=== PATIENT | female | born 1940 | race Caucasian/White ===

== ENCOUNTER → 2017-01-21 | Outpatient (CLI) | payer MEDICARE, OTHER ==
[2016-04-18 14:45] VITALS: BP 126/72
[~2017-01-21] MED LIST: BIOT10004 PO; CALC1TAB PO; CHOL10003 PO; FLUT1DIS3 IH; IRON18TA PO; MULT1TAB52 PO; OMEG300C PO; OMEP40CA5 PO; PROAIR HFA8.5 GM INH
--- NOTE | 2017-01-21 10:27 | RAD ---
DATE: 01/21/2017 EXAM: DIGITAL SCREEN LT W/CAD HISTORY: Previous right breast cancer, left breast screening COMPARISON: 01/20/2016 This study was interpreted with the benefit of Computerized Aided Detection (CAD). FINDINGS: There are scattered fibroglandular densities in the left breast. No new or enlarging breast densities are seen. There is mild unchanged skin retraction in the periareolar region which is presumably postsurgical. Scattered benign type calcifications are present. No suspicious microcalcifications have developed. IMPRESSION: Stable left mammograms without evidence of malignancy. BI-RADS CATEGORY: 2 BENIGN FINDING(S) RECOMMENDED FOLLOW-UP: 12M 12 MONTH FOLLOW-UP PQRS compliance statement: Patient information was entered into a reminder system with a target due date for the next mammogram. Mammography is a sensitive method for finding small breast cancers, but it does not detect them all and is not a substitute for careful clinical examination. A negative mammogram does not negate a clinically suspicious finding and should not result in delay in biopsying a clinically suspicious abnormality. "Our facility is accredited by the [employer] Mammography [employer]."
== END | disposition home or self-care (01) ==
LOC: MAMMO 08:57
PROVIDERS: ATTEND Family Medicine
DX: Z12.31 Encounter for screening mammogram for malignant neoplasm of breast (principal)
CPT/HCPCS: G0202; 77067

== ENCOUNTER → 2020-01-28 | Outpatient (CLI) | payer MEDICARE, OTHER ==
[2016-04-18 14:45] VITALS: BP 126/72
[~2020-01-28] MED LIST changes: +ALBU2.5V8 INH; +MULT-445 PO; -MULT1TAB52 PO; +OMEP40CA45 PO; -OMEP40CA5 PO; -PROAIR HFA8.5 GM INH
--- NOTE | 2020-01-29 17:37 | RAD ---
DATE: 01/28/2020 12:54 PM EXAM: MAMMO MARINA SCREEN LT HISTORY: Screening history of right mastectomy in 2007. COMPARISON: 01/26/2019, 01/22/2018 Left CC and MLO views of the breasts were performed. Left breast tomosynthesis was performed in CC and MLO projections. This study was interpreted with the benefit of Computerized Aided Detection (CAD). FINDINGS: Breast Density: FATTY The Breast Parenchyma is primarily fatty replaced. Breast parenchyma level density A. No suspicious masses, microcalcifications or architectural distortion is present to suggest malignancy. . IMPRESSION: No mammographic evidence of malignancy. BI-RADS CATEGORY: 1 NEGATIVE RECOMMENDED FOLLOW-UP: 12M 12 MONTH FOLLOW-UP Annual screening mammography is recommended, unless clinically indicated sooner based on symptoms or change in physical exam. PQRS compliance statement: Patient information was entered into a reminder system with a target due date for the next mammogram. Mammography is a sensitive method for finding small breast cancers, but it does not detect them all and is not a substitute for careful clinical examination. A negative mammogram does not negate a clinically suspicious finding and should not result in delay in biopsying a clinically suspicious abnormality. "Our facility is accredited by the [employer] Mammography Program."
== END | disposition home or self-care (01) ==
LOC: MAMMO 13:06
PROVIDERS: ATTEND Internal Medicine Hematology & Oncology
DX: Z12.31 Encounter for screening mammogram for malignant neoplasm of breast (principal); Z90.11 Acquired absence of right breast and nipple
CPT/HCPCS: 77061; 77063; 77065; 77067

== ENCOUNTER 2020-10-24 09:11 | Emergency (ER) | payer MEDICARE, OTHER ==
[~2020-10-24] VITALS: Ht 165.1 cm; Wt 59.0 kg
--- NOTE | 2020-10-24 09:49 | PHYS DOC ---
Past Medical History Past Medical History: Anemia, Anxiety, Asthma, Cancer, COPD, GERD, Other Additional Past Medical Histor: BREAST CANCER Past Surgical History: Hysterectomy Additional Past Surgical Histo: RIGHT BREAST MASSECTOMY/COLON RESECTION Smoking Status: Former Smoker Alcohol Use: None Drug Use: None General Adult EDM: Chief Complaint: MULTIPLE COMPLAINTS HPI: HPI: Patient is a 80 year old female with a history of COPD, anxiety, asthma, among other illnesses who presents to the ED today complaining of anxiety for 1 week. Patient is also complaining of visual elucidation for 3 days. Denies any suicidal homicidal ideations. She is also complaining of nausea for months. She states she had colon resection in August at [facility] and never followed up with the general surgeon because she does not care back to the surgeon. He states the surgeon was not pleasant. Denies any abdominal pain, denies any diarrhea. She is complaining of poor taste in her mouth. Review of Systems: Review of Systems: Constitutional: Reports poor taste in her mouth. Denies fever or chills. [] Eyes: Denies change in visual acuity. [] HENT: Denies nasal congestion or sore throat. [] Respiratory: Denies cough or shortness of breath. [] Cardiovascular: Denies chest pain or edema. [] GI: Reports nausea for months. Denies abdominal pain, vomiting, bloody stools or diarrhea. [] : Denies dysuria. [] Musculoskeletal: Denies back pain or joint pain. [] Integument: Denies rash. [] Neurologic: Denies headache, focal weakness or sensory changes. [] Endocrine: Denies polyuria or polydipsia. [] Lymphatic: Denies swollen glands. [] Psychiatric: Reports anxiety and visual hallucinations Heart Score: Risk Factors: Risk Factors: DM, Current or recent (<one month) smoker, HTN, HLP, family history of CAD, obesity. Risk Scores: Score 0 - 3: 2.5% MACE over next 6 weeks - Discharge Home Score 4 - 6: 20.3% MACE over next 6 weeks - Admit for Clinical Observation Score 7 - 10: 72.7% MACE over next 6 weeks - Early Invasive Strategies Allergies: Allergies: Allergies Coded Allergies Type Severity Reaction Last Updated Verified Penicillins Allergy Intermediate RASH 04/18/16 Yes Sulfa (Sulfonamide Antibiotics) Allergy Intermediate RASH 04/18/16 Yes ciprofloxacin Allergy Intermediate RASH 04/18/16 Yes Physical Exam: PE: Constitutional: Well developed, well nourished, no acute distress, non-toxic appearance. [] HENT: Normocephalic, atraumatic, bilateral external ears normal, oropharynx moist, no oral exudates, nose normal. [] Eyes: PERRLA, EOMI, conjunctiva normal, no discharge. [] Neck: Normal range of motion, no tenderness, supple, no stridor. [] Cardiovascular:Heart rate regular rhythm, no murmur [] Lungs & Thorax: Bilateral breath sounds clear to auscultation [] Abdomen: Bowel sounds normal, soft, no tenderness, no masses, no pulsatile masses. [] Skin: Warm, dry, no erythema, no rash. [] Back: No tenderness, no CVA tenderness. [] Extremities: No tenderness, no cyanosis, no clubbing, ROM intact, no edema. [] Neurologic: Alert and oriented X 3, normal motor function, normal sensory f unction, no focal deficits noted. [] Psychologic: Flat affect. Appears anxious Current Patient Data: Vital Signs: Vital Signs Date Time Temp Pulse Resp B/P (MAP) Pulse Ox O2 Delivery O2 Flow Rate FiO2 10/24/20 09:12 97.7 114 20 149/65 (93) 99 Room Air 97.7 EKG: EKG: [] Radiology/Procedures: Radiology/Procedures: []PROCEDURE: ACUTE ABDOMEN SERIES ACUTE ABDOMEN SERIES History: Nausea, bowel resection in August 2020. Comparison: CT abdomen and pelvis with contrast, April 15, 2016. Findings: Frontal chest and supine and upright views of the abdomen. Tortuous thoracic aorta. The cardiac size is normal. There is no pleural effusion or pneumothorax. The lungs are clear. No pneumoperitoneum is identified. No dilated air-filled loops of bowel are seen. Bowel gas pattern is nonobstructive. Surgical clips left abdomen. Suture material in the right abdomen. No obvious organomegaly. Bones unremarkable. IMPRESSION: 1. No acute cardiopulmonary process. 2. Nonobstructive bowel gas pattern. Electronically signed by: Derrek Ingram MD (10/24/2020 10:39 AM) [id number] DICTATED and SIGNED BY: DERREK INGRAM MD DATE: 10/24/20 [id number] 0 Course & Med Decision Making: Course & Med Decision Making Pertinent Labs and Imaging studies reviewed. (See chart for details) This is a 80-year-old female patient presented to the ED today complaining of anxiety for 1 week, visual hallucinations for 3 days, poor taste in her mouth for couple days. Also complaining of nausea for months. CBC with a normal WBC, CMP with potassium of 3.0, patient was given oral potassium replacement and we discussed increasing dietary potassium intake. You were positive for UTI, started on Macrobid. Acute abdominal series is negative. Schuyler from the PAT team came and talked to patient. Patient was started on citalopram 1 week ago. D/c to home follow up with PCP in one week. Al Disclaimer: Al Disclaimer: This electronic medical record was generated, in whole or in part, using a voice recognition dictation system. Departure Departure Impression: Primary Impression: UTI (urinary tract infection) Qualified Codes: N39.0 - Urinary tract infection, site not specified Additional Impressions: Hallucinations Anxiety Person under investigation for COVID-19 Hypokalemia Disposition: 01 DC HOME SELF CARE/HOMELESS Condition: STABLE Referrals: RAFAEL CLEVELAND (PCP) follow up with your doctor in one week Patient Instructions: Anxiety and Panic Attacks, Hallucinations and Delusions, Hypokalemia-Brief, Urinary Tract Infection Additional Instructions: You were evaluated in the emergency room, you have urinary tract infection, take the prescribed antibiotics until completed. Follow-up with your doctor in 1 to 2 weeks. Scripts Nitrofurantoin Monohyd/M-Cryst (MACROBID 100 MG CAPSULE) 100 Mg Capsule 1 CAP PO BID for 7 Days, #14 CAP 0 Refills Prov: DANIS MEADE APRN 10/24/20 DANIS MEADE APRN Oct 24, 2020 09:49
[2020-10-24 10:10] LABS: BASO # 0.1 x10^3/uL (0.0-0.2); BASO % 1 % (0-3); EOS # 0.1 x10^3/uL (0.0-0.7); EOS % 1 % (0-3); HEMATOCRIT 36.3 % (36.0-47.0); HEMOGLOBIN 11.8 g/dL (12.0-15.5); LYMPH % 33 % (24-48); MEAN CORPUSCULAR HEMOGLOBIN 26 pg (25-35); MEAN CORPUSCULAR HGB CONC 33 g/dL (31-37); MEAN CORPUSCULAR VOLUME 79 fL (79-100); MONO # 0.6 x10^3/uL (0.0-1.1); MONO % 6 % (0-9); NEUT # 5.2 x10^3/uL (1.8-7.7); NEUT % 58 % (31-73); PLATELET COUNT 846 x10^3/uL (140-400); RED BLOOD COUNT 4.59 x10^6/uL (3.50-5.40); RED CELL DISTRIBUTION WIDTH 20.7 % (11.5-14.5)
[2020-10-24 10:12] LABS: BARBITURATES NEG (NEG); BENZODIAZEPINES NEG (NEG); CANNABINOIDS NEG (NEG); COCAINE NEG (NEG); METHADONE NEG (NEG); OPIATES NEG (NEG); PHENCYCLIDINE NEG (NEG)
[2020-10-24 10:13] LABS: AMPHETAMINE/METHAMPHETAMINE NEG (NEG)
[2020-10-24 10:20] LABS: BILIRUBIN,URINE NEGATIVE (NEG); CLARITY,URINE CLOUDY; COLOR,URINE YELLOW
[2020-10-24 10:21] LABS: NITRITE,URINE POSITIVE (NEG); PROTEIN,URINE NEGATIVE (NEG-TRACE); UROBILINOGEN,URINE 0.2 mg/dL (0.2 mg/dL)
[2020-10-24 10:23] LABS: BACTERIA,URINE MANY /HPF (0-FEW); RBC,URINE OCC /HPF (0-2)
[2020-10-24 10:38] LABS: ETHANOL < 10 mg/dL (0-10); SALIC 4.8 mg/dL (2.8-20.0)
[2020-10-24 10:39] LABS: ALBUMIN 2.1 g/dL (3.4-5.0); ALBUMIN/GLOBULIN RATIO 0.5 (1.0-1.7); CALCIUM 8.3 mg/dL (8.5-10.1); CREATININE 1.1 mg/dL (0.6-1.0); GFR 47.8; MAGNESIUM 1.8 mg/dL (1.8-2.4); TOTAL BILIRUBIN 0.3 mg/dL (0.2-1.0); TOTAL PROTEIN 6.6 g/dL (6.4-8.2)
--- NOTE | 2020-10-24 10:55 | RAD ---
ACUTE ABDOMEN SERIES History: Nausea, bowel resection in August 2020. Comparison: CT abdomen and pelvis with contrast, April 15, 2016. Findings: Frontal chest and supine and upright views of the abdomen. Tortuous thoracic aorta. The cardiac size is normal. There is no pleural effusion or pneumothorax. The lungs are clear. No pneumoperitoneum is identified. No dilated air-filled loops of bowel are seen. Bowel gas pattern i s nonobstructive. Surgical clips left abdomen. Suture material in the right abdomen. No obvious organomegaly. Bones unremarkable. IMPRESSION: 1. No acute cardiopulmonary process. 2. Nonobstructive bowel gas pattern. Electronically signed by: Derrek Joy MD (10/24/2020 10:39 AM) [id number]
[2020-10-24] MEDS ORDERED: POTASSIUM CHLORIDE 20 MEQ TABLET.ER. PO ONE (11:15)
[2020-10-24] MEDS ORDERED: NITROFURANTOIN MONOHYD/M-CRYST 100 MG CAPSULE. PO ONE (11:15)
[2020-10-24 11:50] VITALS: BP 111/64
[2020-10-24] MEDS ORDERED: NITR100C62 PO (11:52)
[2020-10-24 11:58] LABS: PLT ESTIMATE INCREASED (ADEQUATE)
[2020-10-24 11:59] LABS: ANISOCYTOSIS PRESENT; MICROCYTOSIS PRESENT; POIKILOCYTOSIS PRESENT
[2020-10-24 12:00] LABS: BIZZARE CELLS PRESENT
--- NOTE | 2020-10-24 14:43 | EKG ---
[facility] [address] [place] [address] Test Date: 2020-10-24 Test Time: 10:04:41 Pat Name: ANNABELLA MACKEY Department: Room: Gender: F Credentialing Manager: : 1940 Requested By: DANIS MEADE Order Number: [id number] Reading MD: Tom Ramos Measurements Intervals Gerald Rate: 97 P: 54 VT: 116 QRS: 9 QRSD: 84 T: 41 QT: 400 QTc: 513 Interpretive Statements SINUS RHYTHM COMPLEX(ES) WITH ABERRANT INTRAVENTRICULAR CONDUCTION ATRIAL PREMATURE COMPLEX(ES) PROLONGED QT ABNORMAL ECG Electronically Signed On 11-01-2020 10:19:34 CANDY CUTTER HAND by Tom Ramos
--- NOTE | 2020-10-26 09:09 | NUR ---
IP: Attempted to contact pt concerning COVID results. No answer, no voicemail.
--- NOTE | 2020-10-26 16:48 | NUR ---
IP: Informed pt of negative COVID test. Pt verbalized understanding.
== END 2020-10-24 12:17 | disposition home or self-care (01) ==
LOC: ER 09:11
DX: N39.0 Urinary tract infection, site not specified (principal); Z20.822 Contact with and (suspected) exposure to COVID-19; R44.1 Visual hallucinations; F41.9 Anxiety disorder, unspecified; E87.6 Hypokalemia; D64.9 Anemia, unspecified; J44.9 Chronic obstructive pulmonary disease, unspecified; K21.9 Gastro-esophageal reflux disease without esophagitis; Z90.710 Acquired absence of both cervix and uterus; Z87.891 Personal history of nicotine dependence; Z98.890 Other specified postprocedural states; Z85.9 Personal history of malignant neoplasm, unspecified; Z88.0 Allergy status to penicillin; Z88.2 Allergy status to sulfonamides; Z88.1 Allergy status to other antibiotic agents
CPT/HCPCS: 36415; 74022; 80053; 80307; 80329; 81001; 83690; 83735; 83880; 84443; 84484; 85025; 87086; 93005; 99285; C9803; G0480; U0003

== ENCOUNTER → 2021-01-30 | Outpatient (CLI) | payer MEDICARE, OTHER ==
[~2021-01-30] MED LIST changes: +NITR100C62 PO
--- NOTE | 2021-01-30 13:12 | RAD ---
DATE: January 30, 2021 EXAM: MAMMO MARINA SCREEN LT HISTORY: History of right breast cancer treated with mastectomy in 2007. COMPARISON: 3-D mammogram dated January 28, 2020 This study was interpreted with the benefit of Computerized Aided Detection (CAD). FINDINGS: Breast Density: SCATTERED The breast parenchyma shows scattered fibroglandular densities. Breast parenchyma level B.. There is a nodule seen in the lateral retroareolar region of the left breast. There is a nodular density with group of calcifications seen just medial to the nipple in the CC view of the left breast. This is not readily evident in the MLO projection. Recommend focal magnification 2-D view of the left breast in the CC projection and a 3-D 90 degree view of the left breast followed by left breast sonography. Left breast sonography to evaluate this area plus the retroareolar nodule. IMPRESSION: Retroareolar of the left breast nodule. Nodular density with calcifications of the left breast in the CC view. Additional imaging is needed. BI-RADS CATEGORY: 0 INCOMPLETE: NEEDS ADDITIONAL IMAGING EVALUATION AND/OR PRIOR MAMMOGRAMS FOR COMPARISON. RECOMMENDED FOLLOW-UP: ADD ADDITIONAL IMAGING PQRS compliance statement: Patient information was entered into a reminder system with a target due date now for the next imaging study. Mammography is a sensitive method for finding small breast cancers, but it does not detect them all and is not a substitute for careful clinical examination. A negative mammogram does not negate a clinically suspicious finding and should not result in delay in biopsying a clinically suspicious abnormality. "Our facility is accredited by the [employer] Mammography Program." The patient's breast density may affect the ability of mammography to detect breast cancer. There are 4 categories of breast density, A, B, C and D. Breast density A means that most of the breast tissue is replaced with adipose tissue and therefore is not dense. Breast density B means that the breast tissue is mildly dense and scattered. Breast density C means that the breast tissue is heterogeneously dense. Breast density D means that the breast tissue is very dense. Breast densities especially C and D may decrease the sensitivity of mammography to detect breast cancer. Therefore, the patient may benefit from 3-D breast mammography (3D breast tomography) as a part of their screening mammogram. Insurance may or may not pay for this additional imaging. The patient's breast density based on today's mammogram is category B.
== END ==
LOC: MAMMO 11:59
PROVIDERS: ATTEND Family Medicine
DX: Z12.31 Encounter for screening mammogram for malignant neoplasm of breast (principal); Z85.3 Personal history of malignant neoplasm of breast
CPT/HCPCS: 77063; 77067

== ENCOUNTER → 2021-02-13 | Outpatient (CLI) | payer MEDICARE, OTHER ==
--- NOTE | 2021-02-13 13:51 | RAD ---
EXAM: Left breast diagnostic mammogram with tomosynthesis; left breast sonogram. HISTORY: 80-year-old female presents for evaluation of nodularity and clustered microcalcifications w ithin the left breast demonstrated on a screening mammogram dated 01/30/2021. TECHNIQUE: Full-field digital true lateral 2D and 3D tomosynthesis and spot magnification images of t he left breast are obtained. Sonographic imaging of the left breast was also performed. COMPARISON: 01/30/2021 BREAST PARENCHYMAL DENSITY: Level B - Scattered fibroglandular densities. FINDINGS: There is a nodular density with associated heterogeneous microcalcifications within the 8:0 0 position of the left breast at mid depth. There are additional areas of nodularity which are stable in appearance. There are coarse benign calcifications elsewhere within the left breast. Sonographic imaging of the left breast demonstrates a large shadowing calcification at the 4:00 posit ion. There is no suspicious correlate for nodularity and clustered calcifications at the 8:00 positio n. IMPRESSION: 1. Small nodular asymmetry containing clustered heterogeneous microcalcifications at the 8:00 positio n of the left breast, without a sonographic correlate. Stereotactic biopsy is recommended for definit roxy diagnosis. 2. BI-RADS Category 4: Suspicious abnormality. Biopsy is recommended. These findings and recommendations were discussed with the patient and Alisa, the nurse for the [facility] physician, at 1340 hours on 02/13/2021. If your mammogram demonstrates that you have dense breast tissue, which could hide abnormalities, and if you have other risk factors for breast cancer that have been identified, you might benefit from s upplemental screening tests that may be suggested by your ordering physician. Dense breast tissue, i n and of itself, is a relatively common condition. This information is not provided to cause undue c oncern, but rather to raise your awareness and to promote discussion with your physician regarding th e presence of other risk factors, in addition to dense breast tissue. A report of your mammography re sults will be sent to you and your physician. You should contact your physician if you have any ques tions or concerns regarding this report. Mammography is a sensitive method for finding small breast cancers, but it does not detect them all a nd is not a substitute for careful clinical examination. A negative mammogram does not negate a clin ically suspicious finding and should not result in delay in biopsying a clinically suspicious abnorma lity. PQRS compliance statement - Patient information was entered into a reminder system with a target due date for the next mammogram. "Our facility is accredited by the [employer] Mammography Program." Electronically signed by: Gisselle Awad MD (02/13/2021 1:49 PM) [id number]
== END ==
LOC: MAMMO 12:38
PROVIDERS: ATTEND Family Medicine
DX: N63.24 Unspecified lump in the left breast, lower inner quadrant (principal)
CPT/HCPCS: 76641; 77065; G0279; 77061

== ENCOUNTER → 2021-03-22 | Outpatient (CLI) | payer MEDICARE, OTHER ==
[~2021-03-22] MED LIST changes: +LIDOCAINE 1% Multi-Dose 20 ML VIAL. INJ ONE; +LIDOCAINE 2%/EPI 1:100,000 20 ML VIAL. INJ ONE; -OMEP40CA45 PO; +OMEP40CA7 PO
--- NOTE | 2021-03-22 10:47 | RAD ---
EXAM: Stereotactic left breast biopsy; specimen radiograph; post-biopsy clip placement; unilateral po st-biopsy mammogram. HISTORY: 80-year-old female with a history of right breast cancer, status post right mastectomy, pres ents for stereotactic guided biopsy of nodular density with calcifications within the left breast dem onstrated on a mammogram performed 02/13/2021. TECHNIQUE AND FINDINGS: The procedure and its risks and benefits were discussed with the patient. Ris ks discussed included, but were not limited to, pain, infection, bleeding and need for repeat biopsy. The patient provided verbal and written consent. A timeout was performed. The left breast was placed in the mediolateral compression and the calcifications of interest were id entified and localized with stereotactic cyst. The skin overlying this region was then sterilely prep ped and infiltrated with a few cc 1% lidocaine for local anesthesia. Deeper soft tissue anesthesia wa s administered with epinephrine in 1% lidocaine. Needle positioning and targeting was limited due to thin breast compression inferiorly in the mediolateral projection and skin puckering due to superfici al calcification location. Multiple core biopsy samples were obtained with vacuum assistance. A plain radiograph of the specimen was obtained, demonstrating inclusion of a suspected calcification of interest. Then, a post-biospy clip was advanced to the site of biopsy using the same guidance technique. A sterile bandage was malcolm amie, and the patient was transferred to the mammography suite for craniocaudal and mediolateral obliq ue views. The post-biopsy mammogram was interpreted as a separate workstation and demonstrates immediate post-b iospy changes. The biopsy clip is located approximately 1.2 cm medial and 0.8 cm anterior inferior to the clustered calcifications. The clip deployment was limited due to aforementioned superficial calc ification location in the mediolateral projection. The patient tolerated the procedure without diffic ulty and was discharged to home in stable condition with post-biospy care instructions. IMPRESSION: Stereotactic guided biopsy of a region of nodular density and clustered microcalcificatio ns at the superficial 7:00 position of the left breast and biopsy clip placement. Given procedural li mitations related to insufficient breast thickness and the superficial location of the lesion of inte rest in the mediolateral projection, needle-wire localization for excisional biopsy may be indicated if the pathology findings are not concordant with the imaging findings. An addendum to this report wi ll be submitted when pathology results are available. Electronically signed by: Gisselle Awad MD (03/22/2021 10:44 AM) [id number]
--- NOTE | 2021-03-24 17:07 | PATHOLOGY ---
[facility] Accession Number: [id number] . 01 Material submitted: . breast - LEFT BREAST TISSUE. Modifiers: left . 01 Clinical history: . LEFT BREAST CALCIFICATIONS LEFT BREAST STEREOTACTIC BIOPSY OBTAINED 9:57AM FORMALIN 10:10AM ABNORMAL MAMMO . 02 Diagnosis: Skin and subcutaneous tissue, left breast stereotactic needle biopsies: - Focal recent hemorrhage and microscopic focus of fat necrosis and foreign body giant cell reaction. . (JPM:mml; 03/24/2021) [facility] 03/24/2021 1623 Local . 02 Comment: Sections of the left breast stereotactic biopsy reveal needle biopsies of skin and subcutaneous tissue. The specimen is examined at multiple levels. There are foci of recent hemorrhage. In one of the needle cores, there is a microscopic focus of fat necrosis and foreign body giant cell reaction. No calcifications are identified. . (JPM:mml; 03/24/2021) . 02 Electronically signed: . Ismael Sánchez MD, Pathologist NPI- [id number] . 01 Gross description: . Received in formalin labeled "Jeanne Almaguer and left breast tissue". Received are 4 white-yellow fibroadipose breast tissue cores ranging from 1.0-1.8 cm in length and 0.3-0.4 cm in diameter. The specimen is entirely submitted in cassettes A1 and A2. The specimen was collected on 03/22/2021 at 9:57 AM and placed into formalin 10:10 AM. The specimen will be removed from formalin on 03/22/2020 11:40 PM. The specimen will be in formalin more than 6 hours and less than 72 hours.(BLJ; 03/22/2021) BLJ/BLJ 03/22/2021 1841 Local . 02 Pathologist provided ICD-10: N64.1 . 02 CPT . 424805 Specimen Comment: A courtesy copy of this report has been sent to [phone], [phone] Specimen Comment: [id number] Specimen Comment: Report sent to / DR C[facility]AND [facility]: [facility] [address] [facility] [address], [place] [id number] MD Fer Avendano MD Phone: [phone] [facility]formed at: [facility] [address] [place], [place] [id number] MD Ismael Sánchez MD Phone: [phone]
== END | disposition home or self-care (01) ==
LOC: MAMMO 08:32
PROVIDERS: ATTEND Family Medicine
DX: R92.8 Other abnormal and inconclusive findings on diagnostic imaging of breast (principal); N64.1 Fat necrosis of breast; R92.1 Mammographic calcification found on diagnostic imaging of breast; J44.9 Chronic obstructive pulmonary disease, unspecified; K21.9 Gastro-esophageal reflux disease without esophagitis; Z85.3 Personal history of malignant neoplasm of breast; Z90.710 Acquired absence of both cervix and uterus; Z98.890 Other specified postprocedural states; Z79.899 Other long term (current) drug therapy; Z88.0 Allergy status to penicillin; Z88.1 Allergy status to other antibiotic agents; Z88.2 Allergy status to sulfonamides
CPT/HCPCS: 19081; 77065; J3490

== ENCOUNTER 2021-06-28 07:51 | Day surgery (SDC) | payer MEDICARE, OTHER ==
[~2021-06-28] VITALS: Ht 165.1 cm; Wt 66.0 kg
[~2021-06-28 07:51] MED LIST changes: +ACET325T21 PO; +BUPIVACAINE-EPI 0.5%-1:200000 MPF 30 ML VIAL. ONE; +CLINDAMYCIN 900MG PREMIX 50 ML IV PRN; +FERR325T72 PO; +HYDR-2761 PO; +HYDROmorphone 2 MG/ML VIAL IVP PRN; +IV RINGERS,LACTATED 1000ML 1,000 ML IV SCH; +LACT1CAP19 PO; -LIDOCAINE 1% Multi-Dose 20 ML VIAL. INJ ONE; -LIDOCAINE 2%/EPI 1:100,000 20 ML VIAL. INJ ONE; +LIDOCAINE WITH 8.4% SOD BICARB 3 ML DISP.SYRIN. INJ ONE; +METR500T PO; +MORPHINE SULFATE 2 MG/ML INJ. IVP PRN; +PANT40TA77 PO; +PROCHLORPERAZINE 10 MG/2 ML VIAL. IVP PRN; +fentaNYL PF VIAL 100 MCG/2 ML VIAL IVP PRN
[2021-06-28] MEDS ORDERED: LIDOCAINE WITH 8.4% SOD BICARB 3 ML DISP.SYRIN. ONE (08:30)
[2021-06-28] MEDS ORDERED: SCOPOLAMINE 1.5MG PATCH. TD ONE (09:00)
[2021-06-28] MEDS ORDERED: ONDANSETRON PF 4 MG/2 ML VIAL. ONE (09:28)
[2021-06-28] MEDS ORDERED: ePHEDrine PF IN SALINE 50 MG/10 ML SYRINGE. IV ONE (09:28)
[2021-06-28] MEDS ORDERED: PROPOFOL 10 MG/ML (20ML) VIAL. IV ONE (09:28)
[2021-06-28] MEDS ORDERED: DEXAMETHASONE SOD PHOS 4 MG/ML VIAL ONE (09:28)
[2021-06-28] MEDS ORDERED: LIDOCAINE 2% PF 5 ML VIAL. ONE (09:28)
[2021-06-28] MEDS ORDERED: fentaNYL PF VIAL 100 MCG/2 ML VIAL ONE (09:29)
[2021-06-28] MEDS ORDERED: PHENYLEPHRINE in 0.9% NACL PF 1 MG/10 ML SYRINGE. IV ONE (11:39)
[2021-06-28] MEDS ORDERED: SEVOFLURANE 61 TO 120 MINUTES. IH ONE (11:41)
[2021-06-28] MEDS ORDERED: FAMOTIDINE 20 MG/2 ML VIAL ONE (11:57)
--- NOTE | 2021-06-28 12:29 | RAD ---
EXAM: Left breast needle wire localization; left breast post localization mammogram; left breast spec imen radiograph. HISTORY: 81-year-old female presents for needle-wire localization and surgical resection of suspiciou s clustered microcalcifications within the left breast demonstrated on a prior mammogram. TECHNIQUE: The risks of the procedure were discussed with the patient and written and verbal consent was obtained. A timeout was performed. The left breast was placed in medial lateral compression and t he clustered calcifications of concern were identified. The skin overlying this location was sterilel y prepped and infiltrated with 1 percent lidocaine. Multiple attempts were made to localize the calci fications from an upright medial approach. However, patient motion and patient anatomy precluded succ essful localization from an upright position. Given the location of the calcifications within the inf erior medial breast, the decision was made to place the patient in a left lateral decubitus position and attempt localization from a medial approach. Following patient repositioning, the calcifications of concern were localized and the skin overlying this region was sterilely prepped and infiltrated wi th 1 percent lidocaine. A needle was advanced to the clustered calcifications of concern and the manuela ent was repositioned into a standing craniocaudal position and additional images were obtained. The w get was deployed with the tip adjacent to the calcifications of concern. The calcifications are at ap proximately 7 mm in anterior to the wire hook. The images were marked for surgical guidance. The need le was secured to the skin surface and the patient was transferred to the operative suite in stable c ondition. A specimen radiograph demonstrates inclusion of the calcifications of concern and a biopsy clip. IMPRESSION: Successful mammographic localization of a cluster of microcalcification within the inferi or medial left breast and inclusion of the calcifications of concern and biopsy clip and a specimen r adiograph. An addendum to this report will be submitted when pathology results are available. Electronically signed by: Gisselle Awad MD (06/28/2021 12:26 PM) [id number]
--- NOTE | 2021-06-28 12:41 | PDOC4 ---
Operative Note Operative Note Operative Note: Preoperative Diagnosis: Left breast microcalcifications Postoperative Diagnosis: Same Procedure: Left breast biopsy with needle localization Surgeon: Apolinar Back Order Clerk: Feli ARNDT Anesthesia: General EBL: 10 mL Specimen: Left breast specimen to pathology Drains: None Complications: None Indication: The patient is an 81-year-old female who was found to have abnormal microcalcifications of the left breast. A stereotactic core needle biopsy was attempted however unsuccessful due to technical issues. She was referred for a wire-guided excisional surgical biopsy. The risks of surgery were discussed which include bleeding, infection, pain, anesthetic risk, scar tissue, wound healing problems, potential need for additional surgery procedure. She understands and would like to proceed. Description: The patient was taken to the operating room and placed supine in the operating table. General anesthesia was performed. The left breast was prepped with ChloraPrep and draped in a standard surgical manner. The wire was entering the left breast in the medial location. An incision was made adjacent to the wire extending toward the nipple. Cautery dissection was carried down into the breast parenchyma. The wire was identified and followed toward its distal tip. Using cautery a generous excisional biopsy specimen was mobilized from the surrounding breast parenchyma. The specimen was fully excised and sent off to radiology. Specimen radiograph confirmed the presence of the suspicious microcalcifications. Hemostasis was achieved with cautery. The subcutaneous tissue was approximated with 3-0 Vicryl. Skin was closed with 4-0 Monocryl. Steri-Strips and a sterile dressing were applied. The patient tolerated the procedure well and was sent to the recovery room in stable condition. At the en d of the case all counts were correct. CHERRIE MUELLER MD Jun 28, 2021 12:41
[2021-06-28] MEDS ORDERED: HYDR-2761 PO (12:44)
--- NOTE | 2021-06-28 12:47 | DISCH ---
DISCHARGE INSTRUCTIONS Condition on Discharge Condition on Discharge: Stable Activity After Discharge Activity Instructions for Disc: Resume previous activity, Other, see below Diet after Discharge Diet after Discharge: Regular Wound Incision Care Wound/Incision Care: Other, see below (keep dressing clean and dry X 72 hours, may then remove and shower) Follow-Up Follow up with: Dr Mueller in office in 2 weeks, call for appointment [phone] CHERRIE MUELLER MD Jun 28, 2021 12:47
[2021-06-28] MEDS ORDERED: HYDROcodone/APAP 5/325MG 1 TAB TABLET PO ONE (13:00)
[2021-06-28 13:10] VITALS: BP 160/75
--- NOTE | 2021-07-03 18:06 | PATHOLOGY ---
[facility] Accession Number: [id number] . 01 Material submitted: . breast - LEFT BREAST BIOPSY. Modifiers: left . 01 Clinical history: . ABNORMAL MAMMOGRAM OF L BREAST LEFT BREAST EXCISIONAL BIOPSY . 02 Diagnosis: Breast tissue, wire localized left breast biopsy: - Ductal carcinoma in situ, intermediate grade, cribriform type, with focal comedo-type necrosis and calcifications. - DCIS focally present at the inked margin. - Previous biopsy site changes, focal. - Sclerosing adenosis, multifocal. - Focal nodular dense stromal sclerosis and calcification. - Proliferative fibrocystic changes with focal moderate ductal epithelial hyperplasia. (JPM:helga; 06/30/2021) MBR 06/30/2021 1643 Local . 02 Comment: Sections of the wire localized left breast biopsy show focal intermediate grade ductal carcinoma in situ, cribriform type, with focal comedo-type necrosis and associated calcifications. DCIS is focally present at an inked margin. There is no evidence of invasive carcinoma. Breast prognostic studies will be obtained on A1, the results of which will be reported separately. . The case is also examined by Dr. Phelps, who concurs with the diagnosis. . (JPM:helga/arslan; 06/30/2021) . . Surgical Pathology Cancer Case Summary . Procedure ___ Other: Wire localized biopsy . Specimen Laterality ___ Left . + Tumor Site + ___ Not specified . Size (Extent) of DCIS Estimated size (extent) of DCIS is at least 7 mm + Number of blocks with DCIS: 4 + Number of blocks examined: 11 . Histologic Type ___ Ductal carcinoma in situ . + Architectural Patterns + ___ Cribriform . Nuclear Grade ___ Grade II (intermediate) . Necrosis ___ Present, central (expansive "comedo" necrosis) . Margins ___ Positive for DCIS ___ Cannot be determined: Specimen not oriented . Regional Lymph Nodes ___ No lymph nodes submitted or found . Pathologic Stage Classification (pTNM, AJCC 8th Edition) Primary Tumor (pT) ___ pTis (DCIS): Ductal carcinoma in situ . Regional Lymph Nodes (pN) ___ pNX: Regional lymph nodes cannot be assessed (eg, not removed for pathological study or previously removed) . + Additional Pathologic Findings + Specify: See diagnosis . + Microcalcifications + ___ Present in DCIS + ___ Present in nonneoplastic tissue . 02 Electronically signed: . Ismael Sánchez MD, Pathologist NPI- [id number] . 01 Gross description: . Received in formalin labeled "Jeanne Almaguer, left breast biopsy" is an unoriented portion of yellow-swann lobulated fibroadipose tissue weighing 13 g and measuring 6.5 x 5.0 x 0.8 cm. A guidewire is present at one aspect of the specimen. The external surface is inked entirely black. The specimen is sectioned to reveal a firm swann-white possible lesion measuring 0.6 x 0.5 x 0.5 cm, which is located adjacent to the inked margin. A biopsy clip is not identified. The uninvolved tissue is yellow and lobulated. The specimen is submitted entirely as follows: A1-A2 entire firm possible lesion A3-A4 tissue directly adjacent to possible lesion A5-A11 remainder of specimen The specimen is removed from the patient at 1205 and placed in formalin at 1223 on 06/28/2021. The specimen is removed from formalin at 1850 on 06/29/2021. ([facility] [place]; 06/29/2021) [facility] 06/30/2021 1628 Local . 02 Pathologist provided ICD-10: D05.12, N60.22, N60.12 . 02 CPT . 942328 Specimen Comment: A courtesy copy of this report has been sent to [phone] Specimen Comment: [phone] Specimen Comment: Report sent to / DR CLEVELAND Performed at: [address], [place], [place] [id number] MD Fer Avendano MD Phone: [phone] Performed at: 02 [facility] [address] [place], [place] [id number] MD Ismael Sánchez MD Phone: [phone]
== END 2021-06-28 13:35 | disposition home or self-care (01) ==
LOC: SURG 07:51
PROVIDERS: ATTEND Surgery
DX: R92.0 Mammographic microcalcification found on diagnostic imaging of breast (principal); D05.12 Intraductal carcinoma in situ of left breast; N60.22 Fibroadenosis of left breast; N60.12 Diffuse cystic mastopathy of left breast; R92.8 Other abnormal and inconclusive findings on diagnostic imaging of breast; J44.9 Chronic obstructive pulmonary disease, unspecified; K21.9 Gastro-esophageal reflux disease without esophagitis; Z85.3 Personal history of malignant neoplasm of breast; Z87.440 Personal history of urinary (tract) infections; Z79.899 Other long term (current) drug therapy; Z98.890 Other specified postprocedural states; Z87.891 Personal history of nicotine dependence; Z88.0 Allergy status to penicillin; Z88.1 Allergy status to other antibiotic agents; Z88.2 Allergy status to sulfonamides
CPT/HCPCS: 19125; 19281; 76098; 88305; 88361; A6254; A6258; C1819; J1100; J2370; J2405; J2704; J3010; J3490

== ENCOUNTER 2021-08-21 07:22 | Observation (INO) | payer MEDICARE, OTHER ==
[2021-08-21] VITALS (12 sets, daily range): BP systolic 136–178; BP diastolic 70–85
[~2021-08-21] VITALS: Ht 165.1 cm; Wt 65.4 kg
[~2021-08-21 07:22] MED LIST changes: -BUPIVACAINE-EPI 0.5%-1:200000 MPF 30 ML VIAL. ONE; -LIDOCAINE WITH 8.4% SOD BICARB 3 ML DISP.SYRIN. INJ ONE
[2021-08-21] MEDS ORDERED: SCOPOLAMINE 1.5MG PATCH. TD ONE (08:00)
[2021-08-21] MEDS ORDERED: PROPOFOL 10 MG/ML (20ML) VIAL. IV ONE (08:57)
[2021-08-21] MEDS ORDERED: LIDOCAINE 2% PF 5 ML VIAL. ONE (08:57)
[2021-08-21] MEDS ORDERED: fentaNYL PF VIAL 100 MCG/2 ML VIAL ONE ×2 (08:57→11:13)
[2021-08-21] MEDS ORDERED: PROPOFOL 50 ML IV ONE (08:57)
[2021-08-21] MEDS ORDERED: IV NORMAL SALINE 1000ML BAG 1,000 ML IV SCH (10:30)
[2021-08-21] MEDS ORDERED: ONDANSETRON PF 4 MG/2 ML VIAL. IVP PRN (10:30)
[2021-08-21] MEDS ORDERED: NALOXONE 0.4 MG/ML VIAL. IV PRN (10:30)
[2021-08-21] MEDS ORDERED: 0.9 % SODIUM CHLORIDE 10 ML DISP.SYRIN. IV PRN (10:30)
--- NOTE | 2021-08-21 10:32 | PDOC4 ---
Operative Note Operative Note Operative Note: Preoperative Diagnosis: Left breast ductal carcinoma in situ Postoperative Diagnosis: Same Procedure: Left breast lumpectomy Surgeon: Apolinar Schedule Checker: Domenico Day MS 4 Anesthesia: General EBL: 10 mL Specimen: Left lumpectomy short stitch superficial long stitch lateral to pathology Drains: None Complications: None Indication: The patient is an 81-year-old female who recently underwent an excisional left breast biopsy with needle localization following a prior attempt at a core needle biopsy. This revealed ductal carcinoma in situ which was present on the margin. The plan is to proceed with a lumpectomy for definitive treatment. The risks of surgery were discussed which include bleeding, infection, pain, anesthetic risk, potential need for additional surgery procedure. She understands and would like to proceed. Description: The patient was taken the operating room and placed supine on the operating table. General anesthesia was performed. The left breast was prepped with ChloraPrep and draped in a standard surgical manner. An elliptical incision was made around the prior scar. Cautery dissection was carried down into the breast parenchyma. With primarily cautery a generous lumpectomy specimen was mobilized from the surrounding breast tissue. This included the prior biopsy cavity. The dissection was carried all the way down to the pectoralis muscle. A short silk suture was used to marcia the superficial margin while along silk stitch marked the lateral margin. In a medial to lateral fashion the lumpectomy specimen was excised off the chest wall and sent to pathology. Hemostasis was achieved with cautery. The subcutaneous tissue was approximated with 3-0 Vicryl. The skin was closed with 4-0 Monocryl and a sterile dressing was applied. The patient tolerated the procedure well and was sent to the recovery room in stable condition. At the end of the case all counts were correct. CHERRIE MUELLER MD Aug 21, 2021 10:32
[2021-08-21] MEDS: fentaNYL PF VIAL 100 MCG/2 ML VIAL IVP PRN ×2 (11:20→11:57)
[2021-08-21] MEDS ORDERED: hydrALAZINE 20 MG/ML VIAL. IVP PRN (11:30)
[2021-08-21] MEDS: IV 1/2 NORMAL SALINE 1,000 ML IV SCH (11:38)
[2021-08-21] MEDS ORDERED: hydrALAZINE 20 MG/ML VIAL. ONE ×2 (11:41→11:50)
[2021-08-21] MEDS ORDERED: KETOROLAC 15 MG/ML VIAL. IVP ONE (12:00)
[2021-08-21] MEDS: HYDROcodone/APAP 5/325MG 1 TAB TABLET PO PRN (18:01)
[2021-08-22] MEDS: IV 1/2 NORMAL SALINE 1,000 ML IV SCH (00:45)
[2021-08-22] MEDS: HYDROcodone/APAP 5/325MG 1 TAB TABLET PO PRN (02:05)
[2021-08-22 03:00] VITALS: BP 161/92
[2021-08-22 07:00] VITALS: BP 186/96
[2021-08-22] MEDS ORDERED: ALBUTEROL SULFATE 2.5 MG/3 ML NEBU. INH PRN (09:30)
--- NOTE | 2021-08-22 10:54 | NUR ---
SW following. Discussed with RN, pt from home with daughter, room air, GI soft. Pt had surgery 08/21. RN advised no SW needs and anticipates possible discharge home today. SW will continue to follow.
[2021-08-22 11:00] VITALS: BP 171/73
[2021-08-22] MEDS ORDERED: HYDR-2761 PO (12:31)
--- NOTE | 2021-08-22 12:34 | DISCH ---
DISCHARGE INSTRUCTIONS Condition on Discharge Condition on Discharge: Stable Activity After Discharge Activity Instructions for Disc: Resume previous activity, Other, see below Bathing Instructions: Shower-keep dressing dry Lifting Instructions after Dis: No heavy lifting Driving Instructions after Dis: Do not drive today Diet after Discharge Diet after Discharge: Regular Wound Incision Care Wound/Incision Care: Keep wound/cast CDI, Do not change dressing Contacting the after DC Call your doctor for: Concerns you may have Follow-Up Follow up with: Dr Jiang 08/29 at 315 for questions call [phone] SAURAV POWERS APRN Aug 22, 2021 12:33
--- NOTE | 2021-08-22 12:37 | PDOC3 ---
Discharge Summary Visit Information Date of Admission: Aug 21, 2021 Date of Discharge: Aug 22, 2021 Admitting Diagnosis: Left breast ductal carcinoma in situ Final Diagnosis Left breast ductal carcinoma in situ Brief Hospital Course Allergies Allergies Coded Allergies Type Severity Reaction Last Updated Verified Penicillins Allergy Intermediate RASH 08/21/21 Yes Sulfa (Sulfonamide Antibiotics) Allergy Intermediate RASH 08/21/21 Yes ciprofloxacin Allergy Intermediate RASH 08/21/21 Yes Vital Signs Vital Signs Date Time Temp Pulse Resp B/P (MAP) Pulse Ox O2 Delivery O2 Flow Rate FiO2 08/22/21 11:08 98 Nasal Cannula 08/22/21 11:00 97.9 65 20 171/73 (105) 97.9 08/22/21 02:40 2.0 Brief Hospital Course Ms. Almaguer is a 81 old female underwent Left breast lumpectomy. Postoperatively pain managed, ambulating, and pain controlled. Dressing is intact, no significant swelling. Ready for discharge home Assessment Assessment a/o left breast dressing intact, no swelling, no erythema noted Discharge Information Condition at Discharge: Stable Follow Up: Weeks (1) Disposition/Orders: D/C to Home Scheduled Cholecalciferol (Vitamin D3) (Vitamin D3) 1,000 Unit Tablet, 1 TAB PO DAILY, #30 Ref 5 (Reported) Entered as Reported by: NED LOPEZ on 04/16/16610 Last Taken: Unknown Dose on 08/20/21 Last Action: Last Taken Edited on 08/21/21 0804 by WILLEM ROLLINS Ferrous Sulfate (Feosol) 325 Mg Tablet, 325 MG PO DAILYWBKFT for ANEMIA for 30 Days, #30 Prescribed by: CHIKA BATISTA MD on 04/25/21 1252 Fluticasone/Salmeterol (Advair 250-50 Diskus) 1 Each Disk.w.dev, 1 PUFF IH BID, #3 Ref 3 (Reported) Entered as Reported by: NED LOPEZ on 04/16/16 0611 Last Taken: Unknown Dose on 08/21/21 0700 Last Action: Last Taken Edited on 08/21/21 0804 by WILLEM ROLLINS Multivitamin (Multivitamins) 1 Each Tablet, 1 TAB PO DAILY, #90 Ref 3 (Reported) Entered as Reported by: NED LOPEZ on 04/16/16610 Last Taken: Unknown Dose on 08/20/21 Last Action: Last Taken Edited on 08/21/21 08 by WILLEM ROLLINS Pantoprazole Sodium (Pantoprazole Sodium ) 40 Mg Tablet.dr, 40 MG PO DAILYAC for GERD for 30 Days, #30 Prescribed by: CHIKA BATISTA MD on 04/25/21 1252 Last Taken: Unknown Dose on 08/21/21 0700 Last Action: Last Taken Edited on 08/21/21 08 by WILLEM ROLLINS Scheduled PRN Acetaminophen (Acetaminophen) 325 Mg Tablet, 650 MG PO PRN Q8HRS PRN for MILD PAIN / TEMP > 100.3'F for 10 Days, #60 Prescribed by: CHIKA BATISTA MD on 04/25/21 1252 Albuterol Sulfate (Proair Hfa Inhaler) 8.5 Gm Hfa.aer.ad, 1 PUFF INH PRN Q6HRS PRN for SHORTNESS OF BREATH, Ref 0 (Reported) Entered as Reported by: NED LOPEZ on 04/16/16610 Last Taken: Unknown Dose on 08/21/21 0700 Last Action: Continued on 08/22/21 0919 by CARLOS BLAS Hydrocodone Bit/Acetaminophen (Hydrocodone-Apap 5-325 ) 1 Tab Tablet, 1 TAB PO PRN Q6HRS PRN for PAIN for 5 Days, #15 Ref 0 Prescribed by: Saurav Garcia on 08/22/21 1231 Miscellaneous Medications Biotin (Biotin) 1,000 Mcg Tab.chew, 1,000 MCG PO, (Reported) Entered as Reported by: NED LOPEZ on 04/16/16610 Calcium Carbonate/Vitamin D3 (Caltrate 600 + D Tablet) 1 Each Tablet, 1 EACH PO, (Reported) Entered as Reported by: NED LOPEZ on 04/16/16610 Last Taken: Unknown Dose on 08/20/21 Last Action: Last Taken Edited on 08/21/21 08 by WILLEM ROLLINS Nora-3 Fatty Acids (Fish Oil) 300 Mg Capsule, 360 MG PO, (Reported) Entered as Reported by: NED LOPEZ on 04/16/16610 Last Taken: Unknown Dose on 08/20/21 Last Action: Last Taken Edited on 08/21/21 08 by WILLEM ROLLINS Justicifation of Admission Dx: Justifications for Admission: Justification of Admission Dx: N/A SAURAV GARCIA GLASS VIAL FILLER Aug 22, 2021 12:37
--- NOTE | 2021-08-22 15:38 | NUR ---
Patient discharged home with self care today via wheelchair, accompanied by this RN and daughter. Patient is stable, IV removed, and discharge paperwork given to patient. Patient verbalized understanding of followup and discharge instruction.
--- NOTE | 2021-08-24 09:08 | PATHOLOGY ---
[facility] Accession Number: [id number] . 01 Material submitted: . breast - LEFT LUMPECTOMY. Modifiers: left . 01 Clinical history: . L BREAST DCIS L BREAST LUMPECTOMY SHORT STITCH SUPERFICIAL, LONG STITCH LATERAL . 02 Diagnosis: Skin and breast tissue, oriented left breast lumpectomy: - No residual ductal carcinoma in situ identified. - Margins of resection negative for ductal carcinoma in situ. - Previous biopsy site changes showing biopsy cavity with surrounding fat necrosis, fibrosis, and foreign body giant cell reaction. - Focal fibrocystic changes with focal mild to moderate ductal epithelial hyperplasia. - Sclerosing adenosis, focal. - Medial arterial calcification, focal. (JPM/db; 08/23/2021) LBQ 08/23/2021 1555 Local . 02 Electronically signed: . Ismael Sánchez MD, Pathologist NPI- [id number] . 01 Gross description: . Fixative: Formalin Labeled: Left lumpectomy (L breast lumpectomy per requisition) Specimen received: Oriented lumpectomy Oriented: Short superficial, long lateral Weight: 60 g Dimensions: 8.5 cm medial to lateral, 5.0 cm superior to inferior, and 3.8 cm superficial/anterior to deep/posterior (there is also an ellipse of pale swann skin present measuring 3.2 x 1.0 cm) . The specimen is inked as follows: superior-red inferior-blue superficial/anterior (surrounding the skin)-green deep/posterior-black lateral-orange medial-yellow . Sectioned from: Medial to lateral Number of slices: 18 Previous biopsy cavity: 4.3 x 3.5 x 1.6 cm Previous biopsy cavity location: Slices 7 through 17 . Previous biopsy cavity to margins: 0.1 cm to superior 1.5 cm to inferior Opens to superficial/anterior 0.2 cm to deep/posterior 0.4 cm to lateral 2.4 cm to medial . Uninvolved breast parenchyma: Bright yellow, lobulated with fat necrosis identified surrounding the previous biopsy cavity . The specimen is submitted representatively as follows: . A1 slice 1 (most medial margin), serially sectioned A2 entry level account representative slice 5 A3 entry level account representative slice 7 (most medial aspect of previous biopsy cavity) A4 entry level account representative slice 9 (previous biopsy cavity with closest superior margin) A5 entry level account representative slice 10 (previous biopsy cavity with closest inferior margin) A6 entry level account representative slice 12 (previous biopsy cavity with skin and superficial/anterior margin) A7 entry level account representative slice 14 (previous biopsy cavity where it opens to anterior margin) A8 entry level account representative slice 14 (previous biopsy cavity with closest deep/posterior margin) A9 slice 17 (most lateral aspect of previous biopsy cavity) A10 slice 18 (most lateral margin), serially sectioned. . The specimen is removed from the patient at 0958 and placed in formalin at 0958 on 08/21/2021. The specimen is removed from formalin at 1950 on 08/22/2021. The specimen is in formalin for greater than 6 hours and less than 72 hours. (CAA; 08/22/2021) QAC/QAC 08/22/2021 1333 Local . 02 Pathologist provided ICD-10: N60.32, N60.12, N62, N60.22 . 02 CPT . 889217 Specimen Comment: A courtesy copy of this report has been sent to [phone] Specimen Comment: Report sent to Performed at: 01 [facility] [address], [place] [id number] MD Fer Avendano MD Phone: [phone] Performed at: 02 [facility] [address] [place], [place] [id number] MD Ismael Sánchez MD Phone: [phone]
== END 2021-08-22 15:35 | disposition home or self-care (01) ==
LOC: SURG 07:22 → 4 NORTH 10:27
PROVIDERS: ADMIT Surgery; ATTEND Surgery
DX: D05.12 Intraductal carcinoma in situ of left breast (principal)
CPT/HCPCS: 19301; 94640; 94760; A4209; A4930; A6254; A6258; G0378; G0379; J0360; J2704; J3010; J3490; J7613; 88307

== ENCOUNTER 2021-12-06 20:39 | Emergency (ER) | payer MEDICARE, OTHER ==
[~2021-12-06] VITALS: Ht 165.1 cm; Wt 65.9 kg
[~2021-12-06 20:39] MED LIST changes: -CLINDAMYCIN 900MG PREMIX 50 ML IV PRN; -HYDROmorphone 2 MG/ML VIAL IVP PRN; -IV RINGERS,LACTATED 1000ML 1,000 ML IV SCH; -MORPHINE SULFATE 2 MG/ML INJ. IVP PRN; -PROCHLORPERAZINE 10 MG/2 ML VIAL. IVP PRN; -fentaNYL PF VIAL 100 MCG/2 ML VIAL IVP PRN
--- NOTE | 2021-12-06 21:00 | PHYS DOC ---
Past Medical History Past Medical History: Anemia, Anxiety, Asthma, Cancer, COPD, GERD, Other Additional Past Medical Histor: BREAST CANCER Past Surgical History: Hysterectomy Additional Past Surgical Histo: RIGHT BREAST MASSECTOMY/COLON RESECTION Smoking Status: Former Smoker Alcohol Use: None Drug Use: None General Adult EDM: Chief Complaint: SHORTNESS OF BREATH HPI: HPI: Patient is a 81 year old female who presents here with greater than 1 week history of progressively worsening shortness of breath, cough, with sputum changes, fatigue and generalized weakness. She reports that she has a chronic cough, secondary to COPD, but the cough is increased in frequency and now she is coughing up yellow sputum. She denies hemoptysis. She denies fevers or chills. She has received a flu vaccination and she has had a full Covid vaccination, including booster. She reports 2 to 3 days of nausea, vomiting, diarrhea. No known sick contacts. No travel history. No recent antibiotic use. No recent hospitalizations within the last 90 days. She quit smoking in 2007. She does not normally require supplemental oxygen. She has been using her breathing tr eatments regularly, though not an increased frequency. She has not seen her primary care physician. She called today, but did not receive a phone call back, so she presented to the ER. She denies lower extremity pain or swelling. Review of Systems: Review of Systems: Constitutional: Denies fever or chills. HENT: Denies nasal congestion or sore throat. [] Respiratory: Cough, dyspnea, wheezing Cardiovascular: Denies chest pain or edema. [] GI: Denies abdominal pain. She reports nausea, vomiting, diarrhea. She denies melena, hematochezia or hematemesis. : Denies urinary symptoms. Musculoskeletal: Denies back pain or joint pain. [] Integument: Denies rash. [] Neurologic: Denies headache, focal weakness or sensory changes. Reports generalized fatigue and weakness. Denies dizziness, vertigo, syncope. Psychiatric: Denies depression or anxiety. [] Heart Score: C/O Chest Pain: No Risk Factors: Risk Factors: DM, Current or recent (<one month) smoker, HTN, HLP, family history of CAD, obesity. Risk Scores: Score 0 - 3: 2.5% MACE over next 6 weeks - Discharge Home Score 4 - 6: 20.3% MACE over next 6 weeks - Admit for Clinical Observation Score 7 - 10: 72.7% MACE over next 6 weeks - Early Invasive Strategies Allergies: Allergies: Allergies Coded Allergies Type Severity Reaction Last Updated Verified Penicillins Allergy Intermediate RASH 08/21/21 Yes Sulfa (Sulfonamide Antibiotics) Allergy Intermediate RASH 08/21/21 Yes ciprofloxacin Allergy Intermediate RASH 08/21/21 Yes Physical Exam: PE: Constitutional: Awake, alert, frail and chronically ill-appearing. She is nontoxic in appearance. HENT: Normocephalic, atraumatic, oropharynx patent and clear. Mucous membranes tacky Eyes: Mild conjunctival pallor. Sclerae anicteric. No evidence of orbital or periorbital trauma Neck: Normal range of motion, no tenderness, supple, no stridor. No JVD. Trachea midline. No meningismus. Cardiovascular:Heart rate regular rhythm, +2 radial and +2 posterior tibial pulses bilaterally Lungs & Thorax: Minutes breath sounds in bilateral bases. Faint end expiratory wheezes bilaterally. No stridor. Mild tachypnea. No retractions. No cyanosis. Speaks in full and clear sentences. Abdomen: Bowel sounds normal, soft, no tenderness, no masses, no pulsatile masses. [] Skin: Warm, dry, no erythema, no rash. [] Back: No tenderness, no CVA tenderness. [] Extremities: No tenderness, no cyanosis, no clubbing, ROM intact, no edema. No calf tenderness. Neurologic: Alert and oriented X 3, normal motor function, normal sensory function, no focal deficits noted. [] Psychologic: Affect normal, judgement normal, mood normal. [] EKG: EKG: EKG is interpreted at 2117 Rhythm is sinus Rate is 71 bpm [place] is normal QTc 472 ms No STEMI Radiology/Procedures: Radiology/Procedures: IMAGING REPORT Signed PATIENT: ANNABELLA MACKEY ACCOUNT: [id number] : 1940 LOCATION: ER AGE: 81 SEX: F EXAM STATUS: REG ER ORD. PHYSICIAN: MARY VERDE DO REASON: cough, dyspnea PROCEDURE: PORTABLE CHEST 1V XR CHEST 1V Clinical Indication: Reason: cough, dyspnea / Spl. Instructions: / History: Comparison: AP chest April 20, 2021. Findings: Tortuous thoracic aorta. The cardiomediastinal silhouette is normal. There is minimal atelectasis or scarring in the left lung base. The lungs are otherwise clear. There is no pneumothorax. No pleural effusion is appreciated. No acute bone abnormality. IMPRESSION: No acute cardiopulmonary process. Electronically signed by: Derrek Joy MD (12/06/2021 10:19 PM) [facility] [address] DICTATED and SIGNED BY: DERREK JOY MD DATE: 12/06/212215 Course & Med Decision Making: Course & Med Decision Making Pertinent Labs and Imaging studies reviewed. (See chart for details) Patient was given IV Solu-Medrol and a DuoNeb. She is anxiously waiting discharge, refuses to stay for any further evaluation and treatment. She is not hypoxic on room air. I have discussed the findings, differential diagnosis and plan of care with her. She will be treated for COPD exacerbation. She is given a first dose of oral doxycycline here. I strongly encouraged her to contact her PCP for follow-up this week. Strict return precautions are given. She verbalizes understanding. She is discharged stable condition. Al Disclaimer: Al Disclaimer: This electronic medical record was generated, in whole or in part, using a voice recognition dictation system. Departure Departure Impression: Primary Impression: COPD exacerbation Disposition: 01 HOME / SELF CARE / HOMELESS Condition: STABLE Referrals: RAFAEL CLEVELAND (PCP) Patient Instructions: Chronic Obstructive Pulmonary Disease Exacerbation Additional Instructions: Use the medication as directed, take the full course of antibiotics until gone. Use the breathing treatments as needed/as directed. Please return to the ER for chest pain, coughing up blood, temperature 100.4 or higher, uncontrolled vomiting, dehydration, weakness or any other concerns. Please contact Dr. Cleveland's office tomorrow and discuss follow-up. Explained that you are treated for a COPD flare/exacerbation. If you have a rabbit breeder, please contact them for follow-up as well. It is important that you avoid any smoke, including secondhand smoke. If you live with any family members who smoke, they should make sure they do so outside, they must change the close before returning inside, as this will make your COPD exacerbation and COPD in general much worse. Scripts Prednisone (PREDNISONE) 50 Mg Tablet 1 TAB PO DAILY for 5 Days, #5 TAB take with food or milk Prov: MARY VERDE DO 12/06/21 Albuterol Sulfate (VENTOLIN HFA INHALER) 18 Gm Hfa.aer.ad 2 PUFF INH Q4HRS for FOR WHEEZING, #1 EACH 1 Refill Prov: MARY VERDE DO 12/06/21 Doxycycline Hyclate (DOXYCYCLINE HYCLATE) 100 Mg Capsule 1 CAP PO BID for 7 Days, #14 CAP Prov: MARY VERDE DO 12/06/21 MARY VERDE DO Dec 06, 2021 21:00
[2021-12-06] MEDS ORDERED: methylPREDNISolone SOD SUCC PF 125 MG/2 ML VIAL. IV ONE (21:15)
[2021-12-06] MEDS ORDERED: IPRATRPIUM/ALBUTEROL 0.5/2.5MG 3 ML NEBU. NEB ONE (21:15)
[2021-12-06 21:17] LABS: CLARITY,URINE CLEAR; COLOR,URINE YELLOW
[2021-12-06 21:18] LABS: BILIRUBIN,URINE NEGATIVE (NEG); NITRITE,URINE NEGATIVE (NEG); PROTEIN,URINE NEGATIVE (NEG-TRACE); UROBILINOGEN,URINE 0.2 mg/dL (0.2 mg/dL)
[2021-12-06 21:20] LABS: BACTERIA,URINE FEW /HPF (0-FEW); RBC,URINE 0 /HPF (0-2)
[2021-12-06 21:56] LABS: INFLUENZA A PATIENT NEGATIVE (NEGATIVE); INFLUENZA B PATIENT NEGATIVE (NEGATIVE)
[2021-12-06 22:09] LABS: BASO # 0.1 x10^3/uL (0.0-0.2); BASO % 1 % (0-3); EOS # 0.9 x10^3/uL (0.0-0.7); EOS % 15 % (0-3); HEMATOCRIT 36.8 % (36.0-47.0); HEMOGLOBIN 12.3 g/dL (12.0-15.5); LYMPH # 1.4 x10^3/uL (1.0-4.8); LYMPH % 22 % (24-48); MEAN CORPUSCULAR HEMOGLOBIN 29 pg (25-35); MEAN CORPUSCULAR HGB CONC 33 g/dL (31-37); MEAN CORPUSCULAR VOLUME 86 fL (79-100); MONO # 0.7 x10^3/uL (0.0-1.1); MONO % 11 % (0-9); NEUT # 3.1 x10^3/uL (1.8-7.7); NEUT % 50 % (31-73); PLATELET COUNT 315 x10^3/uL (140-400); RED BLOOD COUNT 4.26 x10^6/uL (3.50-5.40); RED CELL DISTRIBUTION WIDTH 17.7 % (11.5-14.5); WHITE BLOOD COUNT 6.1 x10^3/uL (4.0-11.0)
[2021-12-06 22:21] LABS: CREATININE 0.8 mg/dL (0.6-1.0); GFR 68.8; POTASSIUM 4.8 mmol/L (3.5-5.1)
--- NOTE | 2021-12-06 22:22 | RAD ---
XR CHEST 1V Clinical Indication: Reason: cough, dyspnea / Spl. Instructions: / History: Comparison: AP chest April 20, 2021. Findings: Tortuous thoracic aorta. The cardiomediastinal silhouette is normal. There is minimal atelectasis or scarring in the left lung base. The lungs are otherwise clear. There is no pneumothorax. No pleural e ffusion is appreciated. No acute bone abnormality. IMPRESSION: No acute cardiopulmonary process. Electronically signed by: Derrek Joy MD (12/06/2021 10:19 PM) [facility]
[2021-12-06 22:34] LABS: ALBUMIN 3.7 g/dL (3.4-5.0); MAGNESIUM 1.9 mg/dL (1.8-2.4); PHOSPHORUS 3.8 mg/dL (2.6-4.7); TOTAL BILIRUBIN 0.3 mg/dL (0.2-1.0); TOTAL PROTEIN 7.4 g/dL (6.4-8.2)
[2021-12-06] MEDS ORDERED: VENTOLIN HFA18 GM INH (23:00)
[2021-12-06] MEDS ORDERED: DOXYCYCLINE HYCLATE 100 MG TABLET PO ONE (23:00)
[2021-12-06] MEDS ORDERED: DOXY100C3 PO (23:00)
[2021-12-06] MEDS ORDERED: PRED50TA PO (23:00)
[2021-12-06 23:15] VITALS: BP 137/63
--- NOTE | 2021-12-07 07:53 | EKG ---
[facility] [address] [place] [id number] Test Date: 2021-12-06 Test Time: 21:14:18 Pat Name: ANNABELLA MACKEY Department: Room: Gender: F Closing Manager: : 1940 Requested By: MARY VERDE Order Number: [id number] Reading MD: Measurements Intervals [place] Rate: 71 P: 53 [place]: 148 QRS: 54 QRSD: 90 T: 64 QT: 434 QTc: 472 Interpretive Statements SINUS RHYTHM PROLONGED QT NO SPECIFIC ECG ABNORMALITIES RI6.02 No previous ECG available for comparison
== END 2021-12-06 23:20 | disposition home or self-care (01) ==
LOC: ER 20:39
DX: J44.1 Chronic obstructive pulmonary disease with (acute) exacerbation (principal); K21.9 Gastro-esophageal reflux disease without esophagitis; Z87.891 Personal history of nicotine dependence; Z88.0 Allergy status to penicillin; Z88.1 Allergy status to other antibiotic agents; Z88.2 Allergy status to sulfonamides
CPT/HCPCS: 36415; 71045; 80053; 81001; 82550; 83605; 83735; 83880; 84100; 84484; 85025; 87040; 87428; 93005; 94640; 96374; 99285; J2930

== ENCOUNTER 2022-01-28 21:23 | Emergency (ER) | payer MEDICARE, OTHER ==
[~2022-01-28] VITALS: Ht 167.6 cm; Wt 67.7 kg
[~2022-01-28 21:23] MED LIST changes: +DOXY100C3 PO; +PRED50TA PO; +VENTOLIN HFA18 GM INH
[2022-01-28 21:30] VITALS: BP 166/105
[2022-01-28] MEDS ORDERED: CLIN150C16 PO (22:16)
[2022-01-28] MEDS ORDERED: METH4TAB2 PO (22:16)
[2022-01-28] MEDS ORDERED: FLUT9.9S NS (22:16)
--- NOTE | 2022-01-28 22:17 | PHYS DOC ---
Past Medical History Past Medical History: Anemia, Anxiety, Asthma, Cancer, COPD, GERD, Other Additional Past Medical Histor: BREAST CANCER Past Surgical History: Hysterectomy Additional Past Surgical Histo: RIGHT BREAST MASSECTOMY, ankle, COLON RESECTION 08/29/20 Smoking Status: Former Smoker Alcohol Use: None Drug Use: None General Adult EDM: Chief Complaint: Congestion HPI: HPI: Patient is a 81 year old female with history of COPD, anxiety, right breast cancer with right mastectomy, reports finishing radiation treatment last week, presented to the ED today complaining of nasal congestion for 1-1/2 to 2 months. Patient denies any fever, denies any chest pain or shortness of breath. Patient states she was seen by the PCP 2 weeks ago, she states she was put on antibiotics 10 days which she just finished, she unfortunately does not remember the name of the antibiotics but believes it could be amoxicillin. She states when she was on the medicine symptoms were better, she finished the medicine symptoms returned. She states she is trying Afrin nasal sprays with no relief Review of Systems: Review of Systems: Constitutional: Denies fever or chills. [] Eyes: Denies change in visual acuity. [] HENT: Reports nasal congestion Respiratory: Denies cough or shortness of breath. [] Cardiovascular: Denies chest pain or edema. [] GI: Denies abdominal pain, nausea, vomiting, bloody stools or diarrhea. [] : Denies dysuria. [] Musculoskeletal: Denies back pain or joint pain. [] Integument: Denies rash. [] Neurologic: Denies headache, focal weakness or sensory changes. [] Psychiatric: Denies depression or anxiety. [] Heart Score: C/O Chest Pain: N/A Risk Factors: Risk Factors: DM, Current or recent (<one month) smoker, HTN, HLP, family history of CAD, obesity. Risk Scores: Score 0 - 3: 2.5% MACE over next 6 weeks - Discharge Home Score 4 - 6: 20.3% MACE over next 6 weeks - Admit for Clinical Observation Score 7 - 10: 72.7% MACE over next 6 weeks - Early Invasive Strategies Current Medications: Current Medications Medications (Trade) Dose Ordered Sig/Shruthi Start Time Stop Time Status Last Admin Dose Admin Clindamycin HCl (Cleocin) 450 mg 1X ONCE 01/28/22 22:30 01/28/22 22:31 Allergies: Allergies: Allergies Coded Allergies Type Severity Reaction Last Updated Verified Penicillins Allergy Intermediate RASH 08/21/21 Yes Sulfa (Sulfonamide Antibiotics) Allergy Intermediate RASH 08/21/21 Yes ciprofloxacin Allergy Intermediate RASH 08/21/21 Yes Physical Exam: PE: Constitutional: Well developed, well nourished, no acute distress, non-toxic appearance. [] HENT: Normocephalic, atraumatic, bilateral external ears normal, oropharynx moist, no oral exudates, patient sounds congested nasally. Mild maxillary sinus tenderness Eyes: PERRLA, EOMI, conjunctiva normal, no discharge. [] Neck: Normal range of motion, no tenderness, supple, no stridor. [] Cardiovascular:Heart rate regular rhythm, no murmur [] Lungs & Thorax: Bilateral breath sounds clear to auscultation [] Abdomen: Bowel sounds normal, soft, no tenderness, no masses, no pulsatile masses. [] Skin: Warm, dry, no erythema, no rash. [] Back: No tenderness, no CVA tenderness. [] Extremities: No tenderness, no cyanosis, no clubbing, ROM intact, no edema. [] Neurologic: Alert and oriented X 3, normal motor function, normal sensory function, no focal deficits noted. [] Psychologic: Affect normal, judgement normal, mood normal. [] Current Patient Data: Vital Signs: Vital Signs Date Time Temp Pulse Resp B/P (MAP) Pulse Ox O2 Delivery O2 Flow Rate FiO2 01/28/22 21:30 98.5 85 18 166/105 (125) 96 Room Air 98.5 EKG: EKG: [] Radiology/Procedures: Radiology/Procedures: [] Course & Med Decision Making: Course & Med Decision Making Pertinent Labs and Imaging studies reviewed. (See chart for details) This is a 81-year-old female patient presented to the ED today with nasal congestion for 1-1/2 to 2 months. Has been on antibiotics that she just finished 10 days ago with improvement of symptoms while on the medicine and symptoms reoccurring after the medicine is completed. Unfortunately she does not remember what medicine she was on, she believes it was amoxicillin. She will be discharged on clindamycin, prednisone, and Flonase. Provided ENT for follow-up. Al Disclaimer: Al Disclaimer: This electronic medical record was generated, in whole or in part, using a voice recognition dictation system. Departure Departure Impression: Primary Impression: Acute sinusitis Qualified Codes: J01.01 - Acute recurrent maxillary sinusitis Disposition: HOME / SELF CARE / HOMELESS Condition: STABLE Referrals: RAFAEL CLEVELAND (PCP) REFUGIO REAL MD follow up in 2 weeks Patient Instructions: Sinusitis Additional Instructions: You were evaluated in the emergency room, we highly recommend you follow-up with the provided ENT specialist. Take/use the prescribed medications as ordered. Scripts Fluticasone Propionate (Flonase Allergy Relief) 9.9 Ml [place].susp 2 SPRAYS NS DAILY, #1 ML Prov: DANIS MEADE APRN 01/28/22 Methylprednisolone (MEDROL) 4 Mg Tab.ds.pk 1 PKG PO UD, #1 PKG Prov: DANIS MEADE APRN 01/28/22 Clindamycin Hcl (CLINDAMYCIN HCL) 150 Mg Capsule 3 CAP PO TID, #90 CAP Prov: DANIS MEADE APRN 01/28/22 DANIS MEADE APRN January 28, 2022 22:17
[2022-01-28] MEDS ORDERED: CLINDAMYCIN HCL 150 MG CAPSULE. PO ONE (22:30)
== END 2022-01-28 22:24 | disposition home or self-care (01) ==
LOC: ER 21:23
DX: J01.01 Acute recurrent maxillary sinusitis (principal); J44.9 Chronic obstructive pulmonary disease, unspecified; F41.9 Anxiety disorder, unspecified; J45.909 Unspecified asthma, uncomplicated; K21.9 Gastro-esophageal reflux disease without esophagitis; Z86.2 Personal history of diseases of the blood and blood-forming organs and certain disorders involving the immune mechanism; Z88.0 Allergy status to penicillin; Z88.1 Allergy status to other antibiotic agents; Z88.2 Allergy status to sulfonamides
CPT/HCPCS: 99283